=== PATIENT | female | born 1980 | race Caucasian/White ===

== ENCOUNTER 2019-05-17 21:15 | Emergency (ER) | payer MEDICAID, SELFPAY ==
[2019-05-17 21:16] VITALS: BP 168/115; PULSE 110; RESP 15; TEMP 36.4; O2SAT 97; BMI 48.0
--- NOTE | 2019-05-17 22:21 | ED.VIS.GEN ---
History of Present Illness Chief Complaint: Abscess Informant: Patient Onset: Days Context: Gradual Onset Timing: Continuous Current Severity: Severe Maximum Severity: Moderate Narrative: She is a 38-year-old female with history of MRSA and multiple abscesses presenting for a wound check. Patient developed an abscess on her right newton a couple days ago. She subsequently had an I&D performed at [facility] in the ED 2 days ago. Patient was placed on Keflex. Patient came in because she was worried it might be getting worse. She states when she takes the Band-Aid off in the morning she notices pus around it. She does comment that the swelling, redness and pain has gotten better. Patient denies any other complaints at this time. She denies any systemic symptoms such as fever, chills, nausea or vomiting. She states 10 years ago she was in wound care because of recurrent abscesses but has not been back since. She notes that over the past 6 months she has had a lot more abscesses again. Past Medical History - Allergies and Home Meds Allergies/Adverse Reactions: Allergies vancomycin Allergy (Verified 05/17/19 21:21) Itching acetaminophen [From Percocet] Adverse Reaction (Verified 05/17/19 21:21) Nausea oxycodone [From Percocet] Adverse Reaction (Verified 05/17/19 21:21) Nausea Primary Care Physician: Hayley Angulo,Out of [Primary Care Provider] - Past Medical History: - - MRSA, endometriosis Surgical History: - - Tubal ligation Smoking Status: Never smoker Review of Systems All systems negative except as indicated Skin: Reports: Abscess - Right newton Physical Exam Vital Signs/Narrative: Vital Signs Temp Pulse Resp BP Pulse Ox 05/17/19 21:16 97.6 F L 110 H 15 168/115 H 97 Inital Vital Signs reviewed: Yes General: Well nourished, Well developed, Obese, No Acute Distress Head: Normocephalic, Atraumatic Eyes: Perrl, EOMI ENT: Moist mucous membranes, No rhinorrhea Neck: Supple, Nontender Cardiovascular: Regular rate, Regular rhythm, No murmurs Respiratory: No distress, CTA bilaterally, Chest nontender Abdomen: Soft, Nontender, Nondistended, Normal bowel sounds Back: Nontender, Normal Inspection Extremities: Nontender, No edema Skin: - - Right anterior newton, distal third patient has a 1 cm x 1 cm central area of scab/drainage as well as a 4 cm x 5 cm surrounding area of erythema, no associated warmth. There is serosanguineous discharge presnt. Wound is deroofed and there is only a very small area of purulent discharge. No fluctuance appreciated Neurological: Alert, Oriented x3, Cranial nerves II-XII grossly intact, Normal Strength, Normal Sensation Psychological: Normal affect, Normal Mood ED Disposition - Plan for ED Patient: Disposition: Home or Assisted Living Diagnosis: Wound check, abscess Referrals: [facility] Doctor,Out of [Primary Care Provider] - Additional Instructions: Continue taking antibiotics as prescribed. Continue to use warm compresses and apply bacitracin ointment. I would recommend following up with either dermatology or wound care because of your recurrent abscesses. Return to emergency room if you have further concerns or worsening of your symptoms.
[2019-05-17 22:45] VITALS: BP 168/98; PULSE 88; RESP 16; O2SAT 97
== END 2019-05-17 22:47 | disposition home or self-care (01) ==
PROVIDERS: Emergency Provider Emergency Medicine
DX: L02.415 Cutaneous abscess of right lower limb (principal); E66.9 Obesity, unspecified; Z79.899 Other long term (current) drug therapy; Z86.14 Personal history of Methicillin resistant Staphylococcus aureus infection; Z88.5 Allergy status to narcotic agent
CPT/HCPCS: 10060; 99281